=== PATIENT | female | born 1980 | race Caucasian/White ===

== ENCOUNTER 2017-12-07 21:55 | Emergency (ER) | END 2017-12-08 00:15 | disposition home or self-care (01) ==

== ENCOUNTER 2018-06-06 01:28 | Emergency (ER) | END 2018-06-06 02:53 | disposition home or self-care (01) ==

== ENCOUNTER 2018-07-23 06:51 | Emergency (ER) | payer OTHER ==
[~2018-07-23] VITALS: Ht 167.6 cm; Wt 80.5 kg
[~2018-07-23 06:51] MED LIST: INSULIN LANTUS; LORA-441 PO; MECL25TA2 PO; METH500T PO; MULTIVITAMIN; NAPR-985 PO; ONDA4TAB35 PO; RANI150T35 PO
[2018-07-23 06:54] VITALS: BP 132/82; PULSE 88; RESP 20; Ht 167.6 cm; Wt 80.5 kg
--- NOTE | 2018-07-23 07:59 | ERD ---
ER Documentation Chief Complaint Chief Complaint Complains of white vaginal discharge x 3 days HPI 38-year-old female complaining of vaginal discharge times 3 days. Patient states that the discharge is white, and thicker than usual. She was wearing a pending liner yesterday because the discharge. Denies any vaginal itching, burning, or other irritation. Denies dysuria. Denies pelvic pain. LMP 06/27/2018. ROS All systems reviewed and are negative except as per history of present illness. Medications Home Meds Active Scripts Ranitidine Hcl* (Zantac*) 150 Mg Tablet, 150 MG PO BID PRN for EPIGASTRIC PAIN, #30 TAB Prov:EDWARD ESPINOSA PA-C 06/06/18 Lorazepam* (Ativan*) 0.5 Mg Tablet, 0.5 MG PO Q8H PRN for ANXIETY, #10 TAB Prov:EDWARD ESPINOSA PA-C 06/06/18 Methocarbamol* (Robaxin*) 500 Mg Tab, 500 MG PO Q8 for 3 Days, #9 TAB Prov:DANIEL,EMERY 12/07/17 Naproxen* (Naprosyn*) 500 Mg Tablet, 500 MG PO BID PRN for PAIN AND/OR INFLAMMATION for 10 Days, #20 TAB Prov:DANIEL,EMERY 12/07/17 Meclizine Hcl* (Antivert*) 25 Mg Tablet, 25 MG PO Q6H PRN for DIZZINESS, #20 TAB 0 Refills Prov:ANGELITA GRAY PA-C 12/10/15 Ondansetron Hcl* (Zofran* ODT) 4 mg -ODT Tab.disper, 4 MG PO DAILY PRN for NAUSEA AND/OR VOMITING for 10 Days, #10 TAB 0 Refills Prov:ANGELITA GRAY PA-C 12/10/15 Reported Medications [Insulin Lantus] No Conflict Check 10/29/12 Multivitamin 02/02/10 Allergies Allergies: Coded Allergies: No Known Drug Allergy (Verified Allergy, Unknown, 12/07/17) PMhx/Soc History of Surgery: Yes (APPENDECTOMY,) Anesthesia Reaction: No Hx Neurological Disorder: No Hx Respiratory Disorders: No Hx Cardiac Disorders: Yes (HTN) Hx Psychiatric Problems: No Hx Miscellaneous Medical Probl: Yes (dm) Hx Alcohol Use: No Hx Substance Use: No Hx Tobacco Use: No Physical Exam Vitals Vital Signs Date Temp Pulse Resp B/P (MAP) Pulse Ox O2 O2 Flow FiO2 Time Delivery Rate 07/23/18 97.3 88 20 132/82 100 06:54 (99) Physical Exam General: Well-developed, well-nourished, conscious and coherent, in no distress Skin: Warm and dry without rash, good texture and turgor Head: Normocephalic without evidence of trauma Chest: Normal AP diameter. Good expansion without retractions. Nontender. Lungs are clear to auscultate bilaterally with good tidal volume Heart: Regular rate and rhythm. No murmur, rub, or gallops heard Abdomen: Soft and nontender without masses, guarding, or rebound. Bowel sounds are active. No hepatosplenomegaly : Deferred Extremities: Full range of motion. Good strength bilaterally. No erythema, ecchymosis, or edema. Peripheral pulses are intact. Sensation intact Neuro: Alert and oriented 4, GCS 15. Procedures/MDM Well-appearing 38-year-old female presents the ED with vaginal discharge. Patient has no vaginal itching, burning, or irritation. I doubt yeast vaginitis, bacterial vaginosis. Low suspicion for sexually transmitted infection. Patient has no dysuria, I doubt UTI. Patient appears well, stable for discharge and outpatient management. Medical decision making shared with patient and family. Education provided to patient and family. Patient and family expressed understanding of the plan. Medications on discharge: None. Follow-up: Primary care provider in 1 week or return to ED if worse. Disclaimer: Inadvertent spelling and grammatical errors are likely due to EHR/dictation software use and do not reflect on the overall quality of patient care. Also, please note that the electronic time recorded on this note does not necessarily reflect the actual time of the patient encounter. Departure Diagnosis: Primary Impression: Vaginal discharge Condition: Stable Patient Instructions: Normal Exam, (Child) (Adult) Referrals: COMM[facility]ITY CLIN[facility] YOU HAVE RECEIVED A MEDICAL SCREENING EXAM AND THE RESULTS INDICATE THAT YOU DO NOT HAVE A CONDITION THAT REQUIRES URGENT TREATMENT IN THE EMERGENCY DEPARTMENT. FURTHER EVALUATION AND TREATMENT OF YOUR CONDITION CAN WAIT UNTIL YOU ARE SEEN IN YOUR DOCTORS OFFICE WITHIN THE NEXT 1-2 DAYS. IT IS YOUR RESPONSIBILITY TO MAKE AN APPOINTMENT FOR FOLOW-UP CARE. IF YOU HAVE A PRIMARY DOCTOR --you should call your primary doctor and schedule an appointment IF YOU DO NOT HAVE A PRIMARY DOCTOR YOU CAN CALL OUR PHYSICIAN REFERRAL HOTLINE AT IF YOU CAN NOT AFFORD TO SEE A PHYSICIAN YOU CAN CHOSE FROM THE FOLLOWING COM [facility] [address] [facility] [address] [facility] [facility] [address] [facility] [address] [facility] [address] [facility]. [facility] [address] Additional Instructions: Call your primary care doctor TOMORROW for an appointment during the next 1 WEEK.Tell the paralegal legal secretary that you were referred from this facility.See the doctor sooner or return here if your condition worsens before your appointment time. AMARILIS MARTINEZ NP Jul 23, 2018 07:59
== END 2018-07-23 15:32 | disposition home or self-care (01) ==
LOC: FTE 06:51
DX: N89.8 Other specified noninflammatory disorders of vagina (principal); I10 Essential (primary) hypertension; E11.9 Type 2 diabetes mellitus without complications; Z79.4 Long term (current) use of insulin
CPT/HCPCS: 99282

== ENCOUNTER 2018-09-25 18:14 | Emergency (ER) | payer OTHER ==
[~2018-09-25] VITALS: Ht 165.1 cm; Wt 75.0 kg
[2018-09-25 18:23] VITALS: BP 169/95; PULSE 86; RESP 18; Ht 165.1 cm; Wt 75.0 kg
--- NOTE | 2018-09-25 23:13 | ERD ---
ER Documentation Chief Complaint Chief Complaint DIZZINESS WITH REPORTS OF HTN X 1 WEEK, REPORTS ANXIETY ROS All systems reviewed and are negative except as per history of present illness. Medications Home Meds Active Scripts Lorazepam* (Ativan*) 0.5 Mg Tablet, 0.5 MG PO Q8H PRN for ANXIETY, #10 TAB Prov:AVINASH SALAZAR MD 09/25/18 Meclizine Hcl* (Antivert*) 12.5 Mg Tab, 12.5 MG PO Q6H PRN for DIZZINESS, #20 TAB Prov:AVINASH SALAZAR MD 09/25/18 Ranitidine Hcl* (Zantac*) 150 Mg Tablet, 150 MG PO BID PRN for EPIGASTRIC PAIN, #30 TAB Prov:EDWARD ESPINOSA PA-C 06/06/18 Lorazepam* (Ativan*) 0.5 Mg Tablet, 0.5 MG PO Q8H PRN for ANXIETY, #10 TAB Prov:EDWARD ESPINOSA PA-C 06/06/18 Methocarbamol* (Robaxin*) 500 Mg Tab, 500 MG PO Q8 for 3 Days, #9 TAB Prov:DANIEL,EMERY 12/07/17 Naproxen* (Naprosyn*) 500 Mg Tablet, 500 MG PO BID PRN for PAIN AND/OR INFLAMMATION for 10 Days, #20 TAB Prov:DANIEL,MEERY 12/07/17 Meclizine Hcl* (Antivert*) 25 Mg Tablet, 25 MG PO Q6H PRN for DIZZINESS, #20 TAB 0 Refills Prov:ANGELITA GRAY PA-C 12/10/15 Ondansetron Hcl* (Zofran* ODT) 4 mg -ODT Tab.disper, 4 MG PO DAILY PRN for NAUSEA AND/OR VOMITING for 10 Days, #10 TAB 0 Refills Prov:ANGELITA GRAY PA-C 12/10/15 Reported Medications [Insulin Lantus] No Conflict Check 10/29/12 Multivitamin 02/02/10 Allergies Allergies: Coded Allergies: No Known Drug Allergy (Verified Allergy, Unknown, 12/07/17) PMhx/Soc History of Surgery: Yes (APPENDECTOMY,) Anesthesia Reaction: No Hx Neurological Disorder: No Hx Respiratory Disorders: No Hx Cardiac Disorders: Yes (HTN) Hx Psychiatric Problems: No Hx Miscellaneous Medical Probl: Yes (dm) Hx Alcohol Use: No Hx Substance Use: No Hx Tobacco Use: No Physical Exam Vitals Vital Signs Date Temp Pulse Resp B/P (MAP) Pulse Ox O2 O2 Flow FiO2 Time Delivery Rate 09/25/18 98.0 86 18 169/95 99 18:23 (119) Physical Exam Patient is in no acute distress, vital signs stable. Alert and fully oriented. HEENT: PERRLA, EOMI, Sclera and conjunctiva appear normal, Canals clear, tympanic membranes WNL. THROAT: Normal oropharynx. NECK: Supple, No lymphadenopathy. Full ROM without pain or tenderness. HEART: RRR, no rubs, murmurs, clicks or gallops. LUNGS: Clear to auscultation. ABDOMEN: Soft, non-tender without masses or hepatosplenomegaly. EXTREMITIES: No edema bilaterally. BACK: Full ROM, no deformity, normal back exam NEURO: Cranial nerves grossly intact, no motor or sensory deficit. Mild horizontal nystagmus while the patient was looking straight ahead with mildly abnormal head impulse test. Results 24 hrs Current Medications Medications Dose Sig/Jarocho Start Time Status Last (Trade) Ordered Route PRN Stop Time Admin Dose Reason Admin Lorazepam 0.5 mg ONCE ONCE 09/25/18 (Ativan) PO 23:30 09/25/18 23:31 Meclizine 25 mg ONCE ONCE 09/25/18 HCl PO 23:30 (Antivert) 09/25/18 23:31 Procedures/MDM Vital signs stable, neurovascular exam revealed horizontal nystagmus while the patient was looking straight ahead with mildly abnormal head impulse test. Differential diagnosis include but not limited to dehydration, cardiac arrhythmia, , Mnire's disease, vestibular neuronitis, migraine, vertigo, side effects of the medications, hypoglycemia. Less likely but is still a possibility, intracranial hemorrhage, ischemic stroke, DIAGRAM CLERK neoplasm. Physical examination and clinical presentation consistent most likely with positional vertigo During the ED course the patient remained stable, no new complaints. Results and clinical impression discussed with patient who agrees with management. The patient is stable to be treated outpatient and will be discharged home with instructions to follow up with the primary care provider in the next 48h. If symptoms persist, worsen or new symptoms develop, then patient should return to the ED immediately. Instructions explained and given directly by me to the patient with acknowledgment and demonstrated understanding. Disclaimer: Inadvertent spelling and grammatical errors are likely due to EHR/dictation software use and do not reflect on the overall quality of patient care. Also, please note that the electronic time recorded on this note does not necessarily reflect the actual time of the patient encounter. Departure Diagnosis: Primary Impression: Positional vertigo Condition: Stable Comments Muchas roger por [facility] para valdez servicio. Esperamos que en valdez visita a la regina de emergencia valdez problema medico haya sido solucionado y que se sienta mucho mejor. Para estar seguros que valdez mejoria sigue en proceso, le pedimos el favor de hacer della mehreen de seguimiento medico con valdez doctor primario en los proximos 2-4 daly. Lleve con usted estos documentos y las medicinas recetadas. Si anne marie sintomas empeoran, NO SE ESPERE, por favor regrese a regina de emergencia INMEDIATAMENTE. En omari que usted no tenga un mdico de atencin primaria: Llame al mdico o clnica comunitaria de referencia que aparece abajo patricia las horas de consultorio para hacer della mehreen para que le vean. CLINICAS: [facility] [phone] [facility] [phone] [facility] [phone] [facility] [phone] [facility] [phone] [address] [facility]. [phone] MD Sep 25, 2018 23:13
[2018-09-25] MEDS ORDERED: LORA-441 PO (23:17)
[2018-09-25] MEDS ORDERED: MECL12.574 PO (23:17)
[2018-09-25] MEDS ORDERED: LORAZEPAM 0.5 MG TAB PO ONE (23:30)
[2018-09-25] MEDS ORDERED: MECLIZINE 12.5 MG TAB PO ONE (23:30)
== END 2018-09-25 23:42 | disposition home or self-care (01) ==
LOC: FTE 18:14
DX: R42 Dizziness and giddiness (principal); I10 Essential (primary) hypertension; E11.9 Type 2 diabetes mellitus without complications; Z79.4 Long term (current) use of insulin
CPT/HCPCS: Z7502; Z7610; 99283